=== PATIENT | female | born 1935 | race Caucasian/White ===

== ENCOUNTER 2016-11-12 10:09 | Emergency (ER) | payer MEDICARE, BC ==
[~2016-11-12] VITALS: Ht 157.5 cm; Wt 65.0 kg
[~2016-11-12 10:09] MED LIST: ACET500T3 PO; ALPR.25 PO; ASPI1TAB69 PO; CALNTAB; GABA100C4 PO; LATA0.002 EACH EYE; MEMA1CAP2 PO; OMEP20TA PO; SINE25TA PO; ZOLO25TA PO
[2016-11-12 10:13] VITALS: BP 144/66; PULSE 93; RESP 16; TEMP 98.5; O2SAT 96
[2016-11-12] MEDS ORDERED: SODIUM CHLORIDE 0.9% FLUSH 5 ML FLUSH IV FLUSH PRN (10:30)
[2016-11-12] MEDS ORDERED: ASPI81CH CHEW (10:36)
--- NOTE | 2016-11-12 10:37 | PD ---
HPI Chief Complaint: Altered Mental Status Time Seen by Provider: 10:18 Travel History International Travel<30 days: No Contact w/Intl Traveler<30days: No Traveled to known affect area: No History of Present Illness HPI 80-year-old female presents by ambulance for decreased mentation per family. Family is now at bedside and provides more history. She has 2 daughters here and 1 placed her in bed last night and the other one checked on her this morning and she was down on the ground and not acting herself. She got help from a neighbor who helped her up and she was able to eat yogurt. She started not been as interactive and so they called the ambulance to bring her here. They state yesterday she had also told them she passed out but they're not sure if that happened or not. Her primary is Dr. Chakraborty. Patient cannot provide me with any history but does state her name and that she is at the hospital and wants to go home. PFSH Past Medical History Narrative Medical Per family and records Alzheimer's Disease: Yes Cancer: Yes (MELANOMA, NON-HODGKINSON LYMPHOMA, BREAST AND OVARAIN CA) Chemotherapy: Yes Cerebrovascular Accident: Yes Diabetes: No Diminished Hearing: No Endocrine: No Glaucoma: Yes (BILATERAL) Hepatitis: No Hypertension: Yes Implanted Vascular Access Dvce: Yes Neurologic: Yes (MULTANI'S PALSY, NEUROPATHY, RLS) Thyroid Disease: No Past Surgical History Narrative Surgical Per family and records Abdominal Surgery: No Cardiac Surgery: No Ear Surgery: No Endocrine Surgery: No Eye Surgery: No Gynecologic Surgery: Yes (HYSTERECTOMY) Hysterectomy: Yes Mastectomy: Yes (RIGHT) Oral Surgery: No Pacemaker: No Thoracic Surgery: No Valve Replacement: Yes (LYMPH NODES REMOVED ON R SIDE) Other Surgery: Yes Social History Alcohol Use: No Tobacco Use: No Substance Use: No Allergies-Medications (Allergen,Severity, Reaction): Coded Allergies: Quinine (Verified Allergy, Unknown, UNSURE, 11/12/16) Codeine (Verified Adverse Reaction, Intermediate, NAUSEA AND VOMITING, ) Reported Meds & Prescriptions Reported Meds & Active Scripts Active Macrodantin (Nitrofurantoin Macrocrystal) 100 Mg Cap 100 Mg PO BID 5 Days Reported Aspirin 81 Mg Chew 81 Mg CHEW DAILY Xanax (Alprazolam) 0.25 Mg Tab 0.25 Mg PO Q4H PRN Namzaric (Memantine-Donepezil) 28-10 Mg Cap 1 Cap PO DAILY Sinemet (Carbidopa-Levodopa) 25-100 Mg Tab 1 Tab PO Q12HR Latanoprost Opth Drops (Latanoprost) 0.005% Drops 1 Drop EACH EYE HS Refrigerate until opened. Gabapentin 100 Mg Cap 100 Mg PO BID Omeprazole 20 Mg Tab 20 Mg PO DAILY Zoloft (Sertraline HCl) 25 Mg Tab 25 Mg PO HS Review of Systems Except as stated in HPI: all other systems reviewed are Neg Physical Exam Narrative GENERAL: Well-nourished, well-developed patient. SKIN: Warm and dry. HEAD: Normocephalic and atraumatic. EYES: No injection or drainage. pupils are equal ENT: No nasal drainage noted. NECK: Supple, trachea midline. nttp in midline CARDIOVASCULAR: Regular rate and rhythm RESPIRATORY: no increased effort. No accessory muscle use. GASTROINTESTINAL: Abdomen soft, non-tender, nondistended. NEUROLOGICAL: Drowsy but opens eyes to voice, states name and location, generalized weakness but moves extremities, slow speech Data Data Last Documented VS Vital Signs Date Time Temp Pulse Resp B/P Pulse Ox O2 Delivery O2 Flow Rate FiO2 11/12/16 10:37 86 18 98 Room Air 11/12/16 10:13 98.5 144/66 Orders Electrocardiogram (11/12/16 10:30) Ammonia (11/12/16 10:30) Complete Blood Count With Diff (11/12/16 10:30) Comprehensive Metabolic Panel (11/12/16 10:30) Creatine Kinase (Cpk) (11/12/16 10:30) Prothrombin Time / Inr (Pt) (11/12/16 10:30) Act Partial Throm Time (Ptt) (11/12/16 10:30) Troponin I (11/12/16 10:30) Thyroid Stimulating Hormone (11/12/16 10:30) Urinalysis - C+S If Indicated (11/12/16 10:30) Lactic Acid Sepsis Protocol (11/12/16 10:30) Blood Culture (11/12/16 10:30) Chest, Single Ap (11/12/16 10:30) Ct Brain W/O Iv Contrast(Rout) (11/12/16 10:30) Blood Glucose (11/12/16 10:30) Ecg Monitoring (11/12/16 10:30) Iv Access Insert/Monitor (11/12/16 10:30) Oximetry (11/12/16 10:30) Urinary Catheter Insert/Apply (11/12/16 10:30) Sodium Chloride 0.9% Flush (Ns Flush) (11/12/16 10:30) Pelvis, Ap Only (Routine) (11/12/16 ) Urine Culture (11/12/16 11:04) Labs Laboratory Tests Test 11/12/16 11/12/16 10:45 11:04 White Blood Count 11.2 TH/MM3 Red Blood Count 4.32 MIL/MM3 Hemoglobin 12.9 GM/DL Hematocrit 39.2 % Mean Corpuscular Volume 90.7 FL Mean Corpuscular Hemoglobin 29.9 PG Mean Corpuscular Hemoglobin 32.9 % Concent Red Cell Distribution Width 13.6 % Platelet Count 284 TH/MM3 Mean Platelet Volume 6.6 FL Neutrophils (%) (Auto) 76.3 % Lymphocytes (%) (Auto) 14.9 % Monocytes (%) (Auto) 7.7 % Eosinophils (%) (Auto) 0.7 % Basophils (%) (Auto) 0.4 % Neutrophils # (Auto) 8.5 TH/MM3 Lymphocytes # (Auto) 1.7 TH/MM3 Monocytes # (Auto) 0.9 TH/MM3 Eosinophils # (Auto) 0.1 TH/MM3 Basophils # (Auto) 0.0 TH/MM3 CBC Comment DIFF FINAL Differential Comment Prothrombin Time 10.3 SEC Prothromb Time International 0.9 RATIO Ratio Activated Partial 25.6 SEC Thromboplast Time Sodium Level 135 MEQ/L Potassium Level 4.0 MEQ/L Chloride Level 98 MEQ/L Carbon Dioxide Level 31.7 MEQ/L Anion Gap 5 MEQ/L Blood Urea Nitrogen 8 MG/DL Creatinine 0.85 MG/DL Estimat Glomerular Filtration 65 ML/MIN Rate Random Glucose 94 MG/DL Lactic Acid Level 1.5 mmol/L Calcium Level 8.9 MG/DL Total Bilirubin 0.4 MG/DL Aspartate Amino Transf 13 U/L (AST/SGOT) Alanine Aminotransferase 8 U/L (ALT/SGPT) Alkaline Phosphatase 84 U/L Ammonia 13 MCMOL/L Total Creatine Kinase 56 U/L Troponin I LESS THAN 0.02 NG/ML Total Protein 6.4 GM/DL Albumin 3.5 GM/DL Thyroid Stimulating Hormone 0.704 uIU/ML 3rd Gen Urine Color YELLOW Urine Turbidity HAZY Urine pH 7.5 Urine Specific [place] 1.010 Urine Protein NEG mg/dL Urine Glucose (UA) NEG mg/dL Urine Ketones NEG mg/dL Urine Occult Blood NEG Urine Nitrite NEG Urine Bilirubin NEG Urine Urobilinogen LESS THAN 2.0 MG/DL Urine Leukocyte Esterase NEG Urine RBC 3 /hpf Urine WBC 4 /hpf Urine Squamous Epithelial <1 /hpf Cells Urine Bacteria FEW /hpf Urine Mucus FEW /lpf Microscopic Urinalysis Comment CATH-CULTURE IND MDM Medical Decision Making Medical Screen Exam Complete: Yes Emergency Medical Condition: Yes Medical Record Reviewed: Yes (past history confirmed) Interpretation(s) EKG sinus rhythm at 90, right bundle branch on prior, no new ST elevation or depression or consecutive T-wave inversion CBC & BMP Diagram 11/12/16 10:45 Last [address] 11/12/16 1030 Signed Impressions: Service Date/Time: October 11:18 - CONCLUSION: Normal examination for a patient of this age. Ramon Escobedo MD Chest X-Ray 11/12/16 1030 Signed Impressions: Service Date/Time: October 10:55 - CONCLUSION: 1. Minimal basal atelectasis. Surgical clips right axilla. No effusion or pneumothorax. Ramon Escobedo MD Pelvis X-Ray 11/12/16 0000 Signed Impressions: Service Date/Time: October 10:58 - CONCLUSION: Unremarkable examination of the pelvis. Ramon Escobedo MD UA only few bacteria but given symptoms we'll treat and follow culture Differential Diagnosis Intracranial bleed, UTI, electrolyte abnormality, stroke, cardiac, hypoglycemia , fracture Narrative Course Will check blood work, imaging, urinalysis and monitor ed workup no acute, offered observation for syncope workup, daugthers and patient wanting to go home, can ambulate with walker and at baseline, will call primary for close follow up, daugthers state will increase care at home to 11/01 attempted to reach primary but no return of call, daugthers feel comfortable setting up follow up on their own, given return instructions, all questions answered Diagnosis Primary Impression: Fall Qualified Code: W19.XXXA - Fall, initial encounter Additional Impression: Altered mental status Qualified Code: R41.82 - Altered mental status, unspecified altered mental status type Patient Instructions: General Instructions Additional Instructions: return as needed, follow with primary tommorrow Med/Other Pt SpecificInfo: Prescription(s) given Scripts Nitrofurantoin Macrocrystal (Macrodantin)100 Mg [id number] Mg PO BID 5 Days Ref 0 Prov:Aurora Rowell MD 11/12/16 Disposition: 01 DISCHARGE HOME Condition: Stable Aurora Rowell MD November 12, 2016 10:37
[2016-11-12 11:02] LABS: AUTOMATED NEUTROPHIL # 8.5 TH/MM3 (1.8-7.7); BASOPHIL % 0.4 % (0.0-2.0); EOSINOPHIL # 0.1 TH/MM3 (0-0.4); EOSINOPHIL % 0.7 % (0.0-4.0); HEMATOCRIT 39.2 % (35.0-46.0); HEMO FLAGS DIFF FINAL; LYMPH % 14.9 % (9.0-44.0); LYMPHOCYTE # 1.7 TH/MM3 (1.0-4.8); MEAN CELL VOLUME 90.7 FL (80.0-100.0); MEAN CORPUSCULAR HEMOGLOBIN 29.9 PG (27.0-34.0); MEAN CORPUSCULAR HGB CONC 32.9 % (32.0-36.0); MONO % 7.7 % (0.0-8.0); NEUT % 76.3 % (16.0-70.0); PLATELET COUNT 284 TH/MM3 (150-450); RED BLOOD COUNT 4.32 MIL/MM3 (4.00-5.30); RED CELL DISTRIBUTION WIDTH 13.6 % (11.6-17.2); WHITE BLOOD COUNT 11.2 TH/MM3 (4.0-11.0)
[2016-11-12 11:09] LABS: APTT (PATIENT) 25.6 SEC (24.3-30.1); INTERNATIONAL NORMALIZED RATIO 0.9 RATIO; PROTHROMBIN TIME - PATIENT 10.3 SEC (9.8-11.6)
--- NOTE | 2016-11-12 11:09 | RADRPT ---
EXAM DATE/TIME: 11/12/2016 10:55 [facility] COMPARISON: No previous studies available for comparison. INDICATIONS : Syncope MEDICAL HISTORY : None. SURGICAL HISTORY : None. ENCOUNTER: Initial ACUITY: 1 day PAIN SCORE: 0/10 LOCATION: Bilateral chest FINDINGS: A single view of the chest demonstrates the lungs to be symmetrically aerated without evidence of mas s, infiltrate or effusion. Minimal basal atelectasis. The cardiomediastinal contours are unremarkable . Osseous structures are intact. CONCLUSION: 1. Minimal basal atelectasis. Surgical clips right axilla. No effusion or pneumothorax. Ramon Escobedo MD on November 12, 2016 at 11:05 Board Certified Radiologist. This report was verified electronically.
--- NOTE | 2016-11-12 11:09 | RADRPT ---
EXAM DATE/TIME: 11/12/2016 10:58 [facility] COMPARISON: No previous studies available for comparison. INDICATIONS : Evaluate pelvis for trauma, fell MEDICAL HISTORY : None. SURGICAL HISTORY : None. ENCOUNTER: Initial ACUITY: 1 day PAIN SCORE: Non-responsive. LOCATION: Pelvis FINDINGS: A single frontal view of the pelvis demonstrates no evidence of fracture. The bony pelvic ring is in tact. Bony mineralization is normal. The soft tissues are intact. CONCLUSION: Unremarkable examination of the pelvis. Ramon Escobedo MD on November 12, 2016 at 11:07 Board Certified Radiologist. This report was verified electronically.
[2016-11-12 11:16] LABS: ALT (GPT) 8 U/L (10-53); ANION GAP 5 MEQ/L (5-15); AST (GOT) 13 U/L (15-37); BICARBONATE 31.7 MEQ/L (21.0-32.0); BLOOD UREA NITROGEN 8 MG/DL (7-18); CHLORIDE 98 MEQ/L (98-107); GLOMERULAR FILTRATION RATE 65 ML/MIN (>89); SODIUM (NA) 135 MEQ/L (136-145)
[2016-11-12 11:24] LABS: BACTERIA, URINE FEW /hpf; BLOOD, URINE NEG (NEG); COMMENT (UR) CATH-CULTURE IND; CULTURE IF INDICATED CATH CULTURE IND; GLUCOSE,URINE NEG (NEG); KETONE, URINE NEG (NEG); MUCUS URINE FEW /lpf (OCC); NITRITE,URINE NEG (NEG); PH, URINE 7.5 (5.0-8.5); SQUAMOUS EPITHELIAL CELL URINE <1 /hpf (0-5); URINE COLOR YELLOW (YELLW/STRAW)
[2016-11-12 11:25] LABS: ALKALINE PHOSPHATASE 84 U/L (45-117); TOTAL BILIRUBIN ADULT 0.4 MG/DL (0.2-1.0)
[2016-11-12 11:32] LABS: CREATINE KINASE 56 U/L (26-192)
--- NOTE | 2016-11-12 11:33 | RADRPT ---
EXAM DATE/TIME: 11/12/2016 11:18 [facility] COMPARISON: No previous studies available for comparison. INDICATIONS : Altered mental status RADIATION DOSE: 37.41 CTDIvol (mGy) MEDICAL HISTORY : Hypertension. Cardiovascular disease Carcinoma, ovarian.breast cancer SURGICAL HISTORY : Hysterectomy. Mastectomy, right. ENCOUNTER: Initial ACUITY: 1 day PAIN SCALE: 0/10 LOCATION: Bilateral cranial TECHNIQUE: Multiple contiguous axial images were obtained of the head. Using automated exposure control and adj ustment of the mA and/or kV according to patient size, radiation dose was kept as low as reasonably a chievable to obtain optimal diagnostic quality images. FINDINGS: CEREBRUM: The ventricles are normal for age. No evidence of midline shift, mass lesion, hemorrhage or acute in farction. No extra-axial fluid collections are seen. POSTERIOR FOSSA: The cerebellum and brainstem are intact. The 4th ventricle is midline. The cerebellopontine angle i s unremarkable. EXTRACRANIAL: The visualized portion of the orbits is intact. SKULL: The calvaria is intact. No evidence of skull fracture. CONCLUSION: Normal examination for a patient of this age. Ramon Escobedo MD on November 12, 2016 at 11:30 Board Certified Radiologist. This report was verified electronically.
[2016-11-12] MEDS ORDERED: MACR100C3 PO (12:25)
--- NOTE | 2016-11-12 16:27 | EKG ---
Date Performed: 11/12/2016 Time Performed: 10:56:23 PTAGE: 80 years EKG: Sinus rhythm MARKED LEFT AXIS DEVIATION RIGHT BUNDLE BRANCH BLOCK MODERATE VOLTAGE CRITERIA FOR LVH, CONSIDER NOR MAL VARIANT ABNORMAL ECG PREVIOUS TRACING : 01/24/2015 13.35 Compared to prior tracing no significant change DOCTOR: Aram Murdock Interpretating Date/Time 11/12/2016 16:25:26
== END 2016-11-12 14:02 | disposition home or self-care (01) ==
LOC: NEPE 10:09
DX: R41.82 Altered mental status, unspecified (principal); I10 Essential (primary) hypertension; R94.31 Abnormal electrocardiogram [ECG] [EKG]; W19.XXXA Unspecified fall, initial encounter; B96.89 Other specified bacterial agents as the cause of diseases classified elsewhere
CPT/HCPCS: 70450; 71010; 72170; 80053; 81001; 82140; 82550; 83605; 84443; 84484; 85025; 85610; 85730; 87040; 87086; 93005; 99285

== ENCOUNTER 2017-03-03 09:11 | Emergency (ER) | payer MEDICARE, BC ==
[~2017-03-03 09:11] MED LIST changes: -ACET500T3 PO; -ASPI1TAB69 PO; +ASPI81CH CHEW; -CALNTAB; +MACR100C3 PO
[2017-03-03 09:25] VITALS: BP 149/63; PULSE 88; RESP 18; TEMP 97.9; O2SAT 96
[2017-03-03] MEDS ORDERED: CARBIDOPA/LEVODOPA 25 MG/100 MG TAB PO SCH (10:30)
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
[2017-03-03 11:00] VITALS: BP 170/79; PULSE 87; RESP 17; O2SAT 100
[2017-03-03 11:05] LABS: BLOOD, URINE NEG (NEG); COMMENT (UR) CULT NOT INDICATED; CULTURE IF INDICATED CULT NOT INDICATED; GLUCOSE,URINE NEG (NEG); KETONE, URINE NEG (NEG); NITRITE,URINE NEG (NEG); SQUAMOUS EPITHELIAL CELL URINE <1 /hpf (0-5); URINE COLOR YELLOW (YELLW/STRAW)
[2017-03-03 11:20] LABS: BICARBONATE 28.6 MEQ/L (21.0-32.0); POTASSIUM 3.3 MEQ/L (3.5-5.1)
[2017-03-03 11:30] LABS: AUTOMATED NEUTROPHIL # 8.3 TH/MM3 (1.8-7.7); BASOPHIL # 0.1 TH/MM3 (0-0.2); BASOPHIL % 0.7 % (0.0-2.0); EOSINOPHIL # 0.1 TH/MM3 (0-0.4); EOSINOPHIL % 0.9 % (0.0-4.0); HEMATOCRIT 43.8 % (35.0-46.0); HEMO FLAGS DIFF FINAL; LYMPH % 16.3 % (9.0-44.0); LYMPHOCYTE # 1.8 TH/MM3 (1.0-4.8); MEAN CELL VOLUME 89.8 FL (80.0-100.0); MEAN CORPUSCULAR HEMOGLOBIN 29.1 PG (27.0-34.0); MEAN CORPUSCULAR HGB CONC 32.4 % (32.0-36.0); MONO % 5.6 % (0.0-8.0); NEUT % 76.5 % (16.0-70.0); PLATELET COUNT 310 TH/MM3 (150-450); RED BLOOD COUNT 4.88 MIL/MM3 (4.00-5.30); RED CELL DISTRIBUTION WIDTH 13.2 % (11.6-17.2); WHITE BLOOD COUNT 10.8 TH/MM3 (4.0-11.0)
--- NOTE | 2017-03-03 11:38 | RADRPT ---
EXAM DATE/TIME: 03/03/2017 11:03 [facility] COMPARISON: PELVIS AP ONLY, November 12, 2016, 10:58. INDICATIONS : Fall right hip bruising to hip and pelvis. MEDICAL HISTORY : None. SURGICAL HISTORY : None. ENCOUNTER: Initial ACUITY: 2 days PAIN SCORE: 7/10 LOCATION: Right hip FINDINGS: The exam demonstrates degenerative changes in the lower lumbar spine. The femoral heads are well situated within the acetabular fossa. The alignment is good. No acute pelv ic fracture is seen. CONCLUSION: 1. No acute fracture the pelvis identified. Ken Sotomayor MD on March 03, 2017 at 11:23 Board Certified Radiologist. This report was verified electronically.
[2017-03-03 12:59] VITALS: BP 137/77
== END 2017-03-03 12:59 | disposition home or self-care (01) ==
LOC: NEPE 09:11
DX: M25.551 Pain in right hip (principal); W19.XXXA Unspecified fall, initial encounter; Y92.009 Unspecified place in unspecified non-institutional (private) residence as the place of occurrence of the external cause
CPT/HCPCS: 73502; 80048; 81001; 85025; 99283; P9612